=== PATIENT | male | born 1980 | race Caucasian/White ===

== ENCOUNTER 2017-06-12 18:35 | Emergency (ER) | payer SELFPAY ==
[~2017-06-12] VITALS: Ht 182.9 cm; Wt 90.0 kg
[2017-06-12 18:39] VITALS: BP 122/94; PULSE 98; RESP 20; TEMP 100; O2SAT 98
--- NOTE | 2017-06-12 19:27 | PD ---
HPI Chief Complaint: Laceration/Skin Injury Time Seen by Provider: 19:27 Travel History International Travel<30 days: No Contact w/Intl Traveler<30days: No Traveled to known affect area: No History of Present Illness HPI Before year-old male presents to the emergency department for evaluation of a laceration to his left forearm. Patient states that he was cutting a palm tree in the sand when his ladder fell. He states that he stopped his fall but on the way down he sustained a laceration to his left forearm. Reports significant pain at the site. Denies any limitations in range of motion alterations in sensation. He did not hit his head or lose consciousness. He has no other symptoms to report. Patient is up-to-date on his tetanus vaccination. [facility] Past Medical History Medical History: Denies Significant Hx Tetanus Vaccination: < 5 Years Past Surgical History Other Surgery: Yes (facial reconstruction) Social History Alcohol Use: Yes (socially) Tobacco Use: Yes Substance Use: Yes (marijuana) Allergies-Medications (Allergen,Severity, Reaction): Coded Allergies: No Known Allergies (Unverified , 06/12/17) Reported Meds & Prescriptions Reported Meds & Active Scripts Active Bacitracin Topical 500 Unit/Gm Oint 1 Applic TOPICAL BID Keflex (Cephalexin) 500 Mg Capsule 500 Mg PO Q6H 5 Days Bactrim DS (Sulfamethoxazole-Trimethoprim) 800-160 Mg Tab 1 Tab PO BID Lortab (Hydrocodone-Acetaminophen) 5-325 Mg Tab 1 Tab PO Q6H PRN Ibuprofen 800 Mg Tab 800 Mg PO Q8H PRN Review of Systems Except as stated in HPI: all other systems reviewed are Neg Physical Exam Narrative GENERAL: Well-nourished male patient in no acute distress SKIN: Focused skin assessment warm/dry. 16 centimeter V-shaped laceration on the left anterior forearm. Bleeding is controlled. There is a 1 cm laceration in the muscle belly. Tendon is not visualized. HEAD: Atraumatic. Normocephalic. EYES: Pupils equal and round. No scleral icterus. No injection or drainage. ENT: No nasal bleeding or discharge. Mucous membranes pink and moist. NECK: Trachea midline. No JVD. CARDIOVASCULAR: Regular rate and rhythm. No murmur appreciated. RESPIRATORY: No accessory muscle use. Clear to auscultation. Breath sounds equal bilaterally. GASTROINTESTINAL: Abdomen soft, non-tender, nondistended. Hepatic and splenic margins not palpable. MUSCULOSKELETAL: No obvious deformities. No clubbing. No cyanosis. No edema. Patient has full flexion-extension of the elbow and wrist of the affected extremity. No alterations in sensation. Strength is equal bilateral. Distal pulses are palpable. Cap refill is within normal limits. NEUROLOGICAL: Awake and alert. No obvious cranial nerve deficits. Motor grossly within normal limits. Normal speech. Data Data Last Documented VS Vital Signs Date Time Temp Pulse Resp B/P Pulse Ox O2 Delivery O2 Flow Rate FiO2 06/12/17 18:39 100.0 98 20 122/94 98 Room Air Orders Forearm (2vws) (06/12/17 ) Lidocai-Epi 1%-1:100,000 Inj (Xylocaine- (06/12/17 19:30) Ketorolac Inj (Toradol Inj) (06/12/17 19:30) Sodium Chlorid 0.9% 500 Ml Inj (Ns 500 M (06/12/17 19:30) Sulfamet-Trimeth Ds 800-160 Mg (Bactrim (06/12/17 19:30) Cephalexin (Keflex) (06/12/17 19:30) Acetamin-Hydrocod 325-5 Mg ([place] 5-325 (06/12/17 20:45) Wound Care (06/12/17 20:37) MDM Medical Decision Making Medical Screen Exam Complete: Yes Emergency Medical Condition: Yes Medical Record Reviewed: Yes Differential Diagnosis Laceration superficial versus deep versus foreign body versus open fracture versus tendon injury Narrative Course 45-year-old male presents from an for laceration to left anterior forearm. No other acute findings on exam. The affected extremity appears neurovascularly intact. Wound is cleansed and approximated without difficulty. Patient will be started on oral antibiotics. He is counseled on care. He agrees to return immediately with any acute worsening of symptoms. Procedures Procedure Narrative LACERATION LOCATION: Left forearm LENGTH: 16 cm NUMBER OF STITCHES/ALEJANDRA: 9 horizontal mattress, one single, 4 Vicryl interior REPAIR: The area of the laceration was prepped with Betadine and sterilely draped. The laceration was infiltrated with 1% lidocaine with epinephrine the wound was copiously irrigated and explored without evidence of foreign body, tendon injury or neurovascular injury. The wound was closed using 4-0 Prolene and 4-0 Vicryl. This was a double layer repair. A sterile dressing was applied. The patient was advised to keep the dressing clean and dry. Patient tolerated the procedure well. Diagnosis Primary Impression: Laceration of left forearm Qualified Code: S51.812A - Laceration of left forearm, initial encounter Referrals: Primary Care Physician Patient Instructions: General Instructions, Laceration (ED) Additional Instructions: Keep the area clean and dry Wound care 2 times a day. Wash with warm soapy water, pat dry, apply Polysporin ointment Start antibiotic tomorrow. Take it until it is all gone Elevate to reduce pain and swelling Ice to the affected area, 20 minutes on, 20 minutes off Med/Other Pt SpecificInfo: Prescription(s) given Scripts Bacitracin Topical 500 Unit/Gm Oint1 Applic TOPICAL BID #30 GM Ref 0 Prov:Jenelle Fang 06/12/17 Cephalexin (Keflex)500 Mg [id number] Mg PO Q6H 5 Days Ref 0 Prov:Jenelle Fang 06/12/17 Sulfamethoxazole-Trimethoprim (Bactrim DS)800-160 Mg Tab1 Tab PO BID #20 TAB Ref 0 Prov:Jenelle Fang 06/12/17 Hydrocodone-Acetaminophen (Lortab)5-325 Mg Tab1 Tab PO Q6H PRN (PAIN GREATER THAN 6) #12 TAB Ref 0 Prov:Jenelle Fang 06/12/17 Ibuprofen 800 Mg [id number] Mg PO Q8H PRN (PAIN SCALE 1 TO 10) #30 TAB Ref 0 Prov:Jenelle Fang 06/12/17 Disposition: 01 DISCHARGE HOME Condition: Stable Jenelle Fang Jun 12, 2017 19:27
[2017-06-12] MEDS ORDERED: CEPHALEXIN MONOHYDRATE 500 MG CAP PO ONE (19:30)
[2017-06-12] MEDS ORDERED: SULFAMETHOXAZOLE-TRIMETHOPRIM DS 800-160 MG TAB PO ONE (19:30)
[2017-06-12] MEDS ORDERED: SODIUM CHLORID 0.9% 500 ML INJ 500 ML IV ONE (19:30)
[2017-06-12] MEDS ORDERED: LIDOCAINE 1%/EPINEPHrine 1:100,000 SOLN 20 ML VIAL INFIL ONE (19:30)
[2017-06-12] MEDS ORDERED: KETOROLAC TROMETHAMINE 30 MG/ML (IVP) VIAL IV PUSH ONE (19:30)
--- NOTE | 2017-06-12 19:56 | RADRPT ---
EXAM DATE/TIME: 06/12/2017 19:47 [place] COMPARISON: No previous studies available for comparison. INDICATIONS : Laceration to anterior forearm midway down arm. MEDICAL HISTORY : None. SURGICAL HISTORY : None. ENCOUNTER: Initial ACUITY: 1 day PAIN SCORE: 0/10 LOCATION: Left forearm FINDINGS: Two view examination of the left forearm demonstrates no evidence of fracture or dislocation. Bony m ineralization is normal. Soft tissue irregularity and laceration about the proximal one third of the forearm. No definite evidence of radiopaque foreign body.. CONCLUSION: Osseous structures of the forearm are intact. Kel Hassan MD on June 12, 2017 at 19:54 Board Certified Radiologist. This report was verified electronically.
[2017-06-12] MEDS ORDERED: ACETAMINOPHEN/HYDROcodone 325 MG/5 MG TAB PO ONE (20:45)
[2017-06-12] MEDS ORDERED: HYDR-3533 PO (20:58)
[2017-06-12] MEDS ORDERED: BACT800T5 PO (20:58)
[2017-06-12] MEDS ORDERED: IBUP800T23 PO (20:58)
[2017-06-12] MEDS ORDERED: CEPH-460 PO (20:58)
[2017-06-12] MEDS ORDERED: BACI500O9 TOPICAL (20:58)
== END 2017-06-12 21:10 | disposition home or self-care (01) ==
LOC: NEPD 18:35
DX: S51.812A Laceration without foreign body of left forearm, initial encounter (principal); W11.XXXA Fall on and from ladder, initial encounter; Y93.H2 Activity, gardening and landscaping
CPT/HCPCS: 12035; 73090; 96374; 99284; J1885; J7040